=== PATIENT | female | born 1950 | race Caucasian/White ===

== ENCOUNTER → 2020-08-06 | Outpatient (CLI) | payer OTHER ==
[~2020-08-06] MED LIST: ATORVASTATIN CA80 MG PO; CELE200C PO; CITA20TA6 PO; LISI1TAB20 PO; METF500T16 PO; METO100T7 PO
--- NOTE | 2020-08-06 16:04 | RAD ---
Left knee 3 views INDICATION: Left knee pain COMPARISON: None. TECHNIQUE: AP, oblique and lateral views of the left knee were obtained. FINDINGS: Alignment shows mild varus angulation to the left knee with asymmetric medial joint space narrowing. Bones are demineralized but show no fracture or aggressive appearing bony lesions. Osteophytic spurri ng is present most conspicuously in the medial femoral condyle and along the anterior articular surfa leonila of the tibia. Mild articular surface irregularity on the lateral femoral condyle is also noted. M inimal osteophytic spurring of the superior and inferior poles of the patella are also seen. The AP v iew suggests possible loose bodies in the joint space. Soft tissues show a large joint effusion and a rterial calcifications in the visualized arteries. Lateral meniscal chondrocalcinosis also noted. IMPRESSION: Tricompartmental degenerative changes with a large joint effusion. No fracture or dislocation. Electronically signed by: Kamila Junior MD (08/06/2020 4:01 PM) [id number]
== END ==
LOC: RAD 14:52
PROVIDERS: ATTEND Specialist
DX: M17.12 Unilateral primary osteoarthritis, left knee (principal); M11.262 Other chondrocalcinosis, left knee; M25.462 Effusion, left knee
CPT/HCPCS: 73562

== ENCOUNTER → 2020-10-27 | Outpatient (CLI) | payer OTHER ==
--- NOTE | 2020-10-27 12:26 | RAD ---
Exam Date: 10/27/2020 12:14 PM XR CHEST 2V Indication: Reason: DYSPNEA, TACHYCARDIA / Spl. Instructions: / History: FINDINGS/ IMPRESSION: The cardiac silhouette and pulmonary vasculature are within normal limits. There is no focal consolidation, pleural effusion or pneumothorax. Degenerative changes are seen in the spine. Electronically signed by: Mckay Knott MD (10/27/2020 12:23 PM) [id number]
== END ==
LOC: RAD 12:06
PROVIDERS: ATTEND Specialist
DX: R06.00 Dyspnea, unspecified (principal)
CPT/HCPCS: 71046

== ENCOUNTER 2021-03-12 11:30 | Emergency (ER) | payer OTHER ==
[~2021-03-12] VITALS: Ht 165.1 cm; Wt 70.0 kg
[2021-03-12 11:30] VITALS: BP 145/73
[2021-03-12] MEDS ORDERED: OXYM15MI4 NS (12:24)
--- NOTE | 2021-03-12 12:25 | PHYS DOC ---
Past History Past Medical History: Diabetes, GERD, High Cholesterol, Hypertension Past Surgical History: No Surgical History Smoking: Non-smoker Alcohol Use: None Drug Use: None General Adult EDM: Chief Complaint: NOSEBLEED HPI: HPI: 70-year-old female presents the ED with her daughter, (patient consents to hi s/her/their knowledge and involvement in pts' medical care), complaints of right-sided nosebleed that started around 11:00 today. Patient states she started bleeding in her left nare and had blood clots in the back of her throat. Now states "it stopped." Has history of prior epistaxis. No history of blood transfusions. Is not any anticoagulants. No recent ENT procedures. States she had a Covid test 1 week ago. Review of Systems: Review of Systems: Constitutional: Denies fever or chills Eyes: Denies change in visual acuity HENT: Denies nasal congestion or sore throat Respiratory: Denies cough or shortness of breath Cardiovascular: Denies chest pain or edema GI: Denies nausea or vomiting, Musculoskeletal: Denies back pain or joint pain Integument: Denies rash or diaphoresis Neurologic: Denies headache, focal weakness or sensory changes Psychiatric: Denies depression or anxiety Allergies: Allergies: Allergies Coded Allergies Type Severity Reaction Last Updated Verified Iodinated Contrast Media Allergy Unknown 12/08/13 No Sulfa (Sulfonamide Antibiotics) Allergy Unknown 12/08/13 No Physical Exam: PE: Constitutional: Well developed, well nourished, no acute distress, non-toxic appearance. HENT: Normocephalic, atraumatic, no active epistaxis on my exam, dried blood in right nare, oropharynx patent, Eyes: EOMI, conjunctiva normal, no discharge. Neck: Normal range of motion, supple, Cardiovascular: S1/2 present, regular rhythm Lungs & Thorax: Speaking in full sentences, bilateral equal chest rise, no tachypnea or increased work of breathing Skin: Warm, dry, no erythema, no rash, no pallor Extremities: No tenderness, no cyanosis, Neurologic: Alert and oriented X 3, normal motor function, normal sensory function, no focal deficits noted. [] Psychologic: Affect normal, judgement normal, mood normal. [] EKG: EKG: [] Radiology/Procedures: Radiology/Procedures: [] Heart Score: C/O Chest Pain: No Risk Factors: Risk Factors: DM, Current or recent (<one month) smoker, HTN, HLP, family history of CAD, obesity. Risk Scores: Score 0 - 3: 2.5% MACE over next 6 weeks - Discharge Home Score 4 - 6: 20.3% MACE over next 6 weeks - Admit for Clinical Observation Score 7 - 10: 72.7% MACE over next 6 weeks - Early Invasive Strategies Course & Med Decision Making: Course & Med Decision Making Pertinent Labs and Imaging studies reviewed. (See chart for details) Concern for anterior epistaxis that resolved prior to ED arrival. Patient's sbp is 145. Will prescribe Afrin and was educated on sinus precautions/direct pressure for at least 15 minutes. Will discharge home with strict ED return precautions were given for recurrent bleeding, brisk bleeding, near-syncope or syncope or exertional shortness of breath.. Encouraged urgent outpatient follow- up with PMD and ENT. Life-threatening processes were considered but are low suspicion at this time, given history, physical exam and ED workup. Pt was educated on all prescription medications and adverse effects. All patient's questions were answered and pt was stable at time of discharge. Life/limb-threatening differential includes but is not limited to, thrombocytopenia, drug related adverse event, gastrointestinal bleeding, posterior epistaxis, hemorrhagic shock, DIC, life-threatening rash, arterial injury or trauma. I have spoken with the patient and/or caregivers. I explained the patient's condition, diagnoses and treatment plan based on the information available to me at this time. I have answered the patient and/or caregiver's questions and addressed any concerns. The patient and/or caregivers have a good understanding of patient's diagnosis, condition and treatment plan as can be expected at this point. Vital signs have been stable. Patient's condition is stable and appropriate for discharge from the emergency department. Patient will pursue further outpatient evaluation with primary care physician or other designated or consulting physician as outlined in the discharge instructions. The patient and/or caregivers are agreeable to this plan of care and follow-up instructions have been explained in detail. The patient and/or caregivers have received these instructions in written form and have expressed an understanding of the discharge instructions. The patient and/or caregivers are aware that any significant change of condition or worsening of symptoms should prompt immediate return to this or the closest emergency department or call to 911. Jabari Disclaimer: Jabari Disclaimer: This electronic medical record was generated, in whole or in part, using a voice recognition dictation system. Departure Departure: Impression: Primary Impression: Anterior epistaxis Disposition: HOME / SELF CARE / HOMELESS Condition: STABLE Referrals: CHELSEA CEDENO MD (PCP) [phone] OR [facility]-Dr. Blair [phone] Patient Instructions: Nosebleed Additional Instructions: FOLLOW UP WITH ENT: FOR DEFINITIVE MANAGEMENT Hamzah Ramirez DO [address], [address] [place] [address] OR [facility] [address] [place] [address] EMERGENCY DEPARTMENT GENERAL DISCHARGE INSTRUCTIONS Thank you for coming to [facility] (ED) today and trusting us with you care. We trust that you had a positivie experience in our Emergency Department. If you wish to speak to the department management, you may call the director at [phone]. YOUR FOLLOW UP INSTRUCTIONS ARE FOLLOWS: 1. Do you have a private Doctor? If you do not have a private doctor, please ask for a resource list of physicians or clinics that may be able to assist you with follow up care. 2. The Emergency Physician has interpreted your x-rays. The X-Ray specialist will also review them. If there is a change in the findings, you will be notified in 48 hours when at all possible. 3. A lab test or culture has been done, your results will be reviewed and you will be notified if you need a change in treatment. ADDITIONAL INSTRUCTIONS AND INFORMATION: 1. Your care today has been supervised by a physician who is specially trained in emergency care. Many problems require more than one evaluation for a complete diagnosis and treatment. We recommend that you schedule your follow up appointment as recommended to ensure complete treatment of you illness or injury. If you are unable to obtain follow up care and continue to have a problem, or if your condition worsens, we recommend that you return to the ED. 2. We are not able to safely determine your condition over the phone nor are we able to give sound medical advice over the phone. For these safety reasons, if you call for medical advice we will ask you to come to the ED for further evaluation. 3. If you have any questions regarding these discharge instructions please call the ED at [phone]. SAFETY INFORMATION: In the interest of safety, wellness, and injury prevention; we encourage you to wear your sealbelt, if you smoke; quite smoking, and we encourage family to use a protective helmet for bicycling and other sporting events that present an increased risk for head injury. IF YOUR SYMPTOMS WORSEN OR NEW SYMPTOMS DEVELOP, OR YOU HAVE CONCERNS ABOUT YOUR CONDITION; OR IF YOUR CONDITION WORSENS WHILE YOU ARE WAITING FOR YOUR FOLLOW UP A PPOINTMENT; EITHER CONTACT YOUR PRIMARY CARE DOCTOR, THE PHYSICIAN WHOSE NAME AND NUMBER YOU WERE GIVEN, OR RETURN TO THE ED IMMEDIATELY. Scripts Oxymetazoline Hcl (AFRIN) 15 Ml Mist 15 ML NS Q4HRS for nosebleed, #2 SPRAY 0 Refills no more than 6 sprays/24 hours Prov: ZENAIDA STEINBERG DO 03/12/21 ZENAIDA STEINBERG DO Mar 12, 2021 12:25
== END 2021-03-12 12:32 | disposition home or self-care (01) ==
LOC: ER 11:30
DX: R04.0 Epistaxis (principal); E11.9 Type 2 diabetes mellitus without complications; K21.9 Gastro-esophageal reflux disease without esophagitis; E78.00 Pure hypercholesterolemia, unspecified; I10 Essential (primary) hypertension; Z91.041 Radiographic dye allergy status; Z88.2 Allergy status to sulfonamides
CPT/HCPCS: 99282

== ENCOUNTER → 2021-06-03 | Outpatient (CLI) | payer OTHER ==
[~2021-06-03] MED LIST changes: -LISI1TAB20 PO; +LISI1TAB39 PO; +OXYM15MI4 NS
--- NOTE | 2021-06-06 11:10 | RAD ---
XR LUMBAR SPINE 2-3V History: Reason: LOW BACK PAIN / Spl. Instructions: / History: Technique: 3 views of the lumbar spine. Comparison: None. Findings: Normal vertebral body height and alignment. No acute fracture. Moderate to advanced degenerative disc changes most prominent L2-L3 and L5-S1. Advanced facet arthropathy. Impression: 1. Moderate to advanced lumbar spondylosis. Electronically signed by: Jose Raul Brown DO (06/06/2021 11:08 AM) [id number]
== END ==
LOC: RAD 16:34
PROVIDERS: ATTEND Specialist
DX: M47.816 Spondylosis without myelopathy or radiculopathy, lumbar region (principal); M48.8X6 Other specified spondylopathies, lumbar region
CPT/HCPCS: 72100

== ENCOUNTER → 2021-08-10 | Outpatient (CLI) | payer OTHER ==
--- NOTE | 2021-08-10 15:27 | RAD ---
EXAM: DUAL ENERGY X-RAY ABSORPTIOMETRY (DEXA). HISTORY: Postmenopausal screening. FINDINGS: The lowest measured T-score is -1.9 in the right hip, based on a bone mineral density of 0. 703 g/cm^2. Refer to the worksheets for full detail. No comparison examinations are available. IMPRESSION: 1. Low bone mass. Bone mineral density yields a T-score between -1.0 and -2.5. Fracture risk is incre ased. 2. FRAX report: Not calculated. METHODOLOGY: Dual energy x-ray absorptiometry was performed to measure bone mineral density. The foll owing analysis is based on the 2019 Official Positions of the International Society for Clinical Dens itometry: Measurements of the hips and the average of L1-L4 are preferred. When the spine and/or hip cannot be feasibly measured or interpreted, or in the setting of hyperparathyroidism, distal radial bone minera l density may be measured. The lumbar spine T-score is based on the average bone mineral density of L1-L4. In the setting of art ifact or anatomic abnormality, some lumbar levels may be excluded, and the remaining levels used for calculation. A single lumbar level is not used for diagnosis, and if only a single level is available for assessment, another anatomic site will be used to assign a diagnosis. The hip T-score is based on the bone mineral density measurement of the femoral neck or total proxima l femur of either side, whichever is lowest. Bilateral mean values are not used for diagnosis. The forearm T-score is derived from 33% of the distal radius of the nondominant forearm. Electronically signed by: Emelina Rahman MD (08/10/2021 3:25 PM) [id number]
== END ==
LOC: DXRAD 14:55
PROVIDERS: ATTEND Specialist
DX: M85.88 Other specified disorders of bone density and structure, other site (principal)
CPT/HCPCS: 77080